=== PATIENT | male | born 1965 | race Caucasian/White ===

== ENCOUNTER 2023-10-06 16:12 | Outpatient (CLI) | payer OTHER ==
[~2023-10-06 16:12] MED LIST: CIPRO500 MG PO; DICY20TA PO; FLAGYL500MG PO; INTESTINEX1 CA1 PO
== END 2023-10-06 16:20 | disposition home or self-care (01) ==
LOC: RAD 16:12
PROVIDERS: ATTEND Orthopaedic Surgery
DX: M25.561 Pain in right knee (principal)